=== PATIENT | male | born 1990 | race Caucasian/White ===

== ENCOUNTER 2017-06-09 17:09 | Emergency (ER) | payer SELFPAY ==
[~2017-06-09] VITALS: Ht 200.7 cm; Wt 77.3 kg
[2017-06-09 17:19] VITALS: BP 137/88; PULSE 105; RESP 16; TEMP 97.7; O2SAT 100
[2017-06-09] MEDS ORDERED: CLIN300C5 PO (18:30)
--- NOTE | 2017-06-09 18:37 | PD ---
HPI Chief Complaint: Skin Problem Time Seen by Provider: 18:09 Travel History International Travel<30 days: No Contact w/Intl Traveler<30days: No Traveled to known affect area: No History of Present Illness HPI 26-year-old male presents to the emergency room for evaluation of 2 lesions that he first noticed 2-3 days ago. One lesion is to the right medial eyebrow and the second is to the left temporal scalp. States he has not noticed any drainage from either. He reports significant pain especially to the cyst around the eyebrow. He has not taken anything or done anything for symptoms. He has history of Marfan's but takes no daily medications. 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) Diminished Hearing: No Gastrointestinal Disorders: Yes Genetic Disorder: Yes (MARFANS SYNDROME) Genitourinary: No Headaches: Yes Musculoskeletal: Yes (RELATED TO MARFANS) Neurologic: Yes Psychiatric: No Respiratory: No Immunizations Current: Yes Seizures: No Past Surgical History Abdominal Surgery: Yes (HERNIA SURGERY INFANT) Cardiac Surgery: No Ear Surgery: No Endocrine Surgery: No Eye Surgery: No Genitourinary Surgery: Yes (circumcised) Gynecologic Surgery: No Neurologic Surgery: No Oral Surgery: No Thoracic Surgery: No Other Surgery: Yes Social History Alcohol Use: No Tobacco Use: No Substance Use: No Allergies-Medications (Allergen,Severity, Reaction): Coded Allergies: No Known Allergies (Verified , 06/03/15) Reported Meds & Prescriptions Reported Meds & Active Scripts Active Clindamycin (Clindamycin HCl) 300 Mg Cap 300 Mg PO TID 10 Days Review of Systems Except as stated in HPI: all other systems reviewed are Neg Physical Exam Narrative GENERAL: Well-nourished, well-developed male in no acute distress. Afebrile. Ambulatory. SKIN: Focused skin assessment warm/dry. There is an indurated area in the left medial eyebrow which measures about 1 cm in diameter. It is fluctuant but there is no pointing or drainage. There is a zone of inflammation around it but no lymphangitis. There is a small pimple-like lesion to the left temporal scalp that measures about 2 mm in diameter. It appears to have drained already. HEAD: Normocephalic. EYES: No scleral icterus. No injection or drainage. NECK: Supple, trachea midline. No JVD or lymphadenopathy. CARDIOVASCULAR: Regular rate and rhythm without murmurs, gallops, or rubs. RESPIRATORY: Breath sounds equal bilaterally. No accessory muscle use. PSYCHIATRIC: No delusional thought processes. No hallucinations. Data Data Last Documented VS Vital Signs Date Time Temp Pulse Resp B/P (MAP) Pulse Ox O2 Delivery O2 Flow Rate FiO2 06/09/17 17:19 97.7 105 16 137/88 (104) 100 MDM Medical Decision Making Medical Screen Exam Complete: Yes Emergency Medical Condition: Yes Medical Record Reviewed: Yes Differential Diagnosis Cystic acne, abscess, cellulitis, folliculitis Narrative Course 26-year-old male presents to the emergency room for evaluation of a lesion to his right medial eyebrow and left temporal scalp that started a few days ago. Physical exam reveals an indurated area in the left medial eyebrow which measures about 1 cm in diameter. It is fluctuant but there is no pointing or drainage. There is a zone of inflammation around it but no lymphangitis. There is a small pimple-like lesion to the left temporal scalp that measures about 2 mm in diameter. It appears to have drained already. Likely cystic acne. A needle was inserted into the cyst without any purulent drainage. Because patient is at risk for preseptal cellulitis, he will be discharged with prescription for clindamycin. Patient was instructed that he does not need antibiotics unless he develops symptoms of preseptal cellulitis sutures eyelid redness and swelling. He was told to apply warm compresses to the acne and follow-up with primary care physician or return for worsening symptoms. He understands and agrees to plan. Diagnosis Primary Impression: Cystic acne Referrals: Primary Care Physician Additional Instructions: Only start clindamycin if you develop fevers or the area around your upper or lower eyelid becomes red and/or swollen. Apply warm compresses to the eyebrow lesion 5 times daily for 20 minutes at a time. Follow-up with a primary care physician. Return for worsening symptoms. Scripts Clindamycin (Clindamycin) 300 Mg Cap 300 MG PO TID for Infection for 10 Days, CAP 0 Refills Prov: Papo Almendarez MD 06/09/17 Disposition: 01 DISCHARGE HOME Condition: Stable Pamela Vickers Jun 09, 2017 18:37
== END 2017-06-09 18:53 | disposition home or self-care (01) ==
LOC: NEPK 17:09
DX: L70.0 Acne vulgaris (principal); Q87.40 Marfan syndrome, unspecified; Z86.79 Personal history of other diseases of the circulatory system; Z87.39 Personal history of other diseases of the musculoskeletal system and connective tissue; Z86.69 Personal history of other diseases of the nervous system and sense organs; Z86.59 Personal history of other mental and behavioral disorders
CPT/HCPCS: 99283